=== PATIENT | male | born 1990 | race Caucasian/White ===

== ENCOUNTER 2016-11-14 23:23 | Emergency (ER) | payer OTHER ==
[2016-11-14 23:34] VITALS: RESP 16
--- NOTE | 2016-11-15 00:34 | EDPHY ---
H & P Stated Complaint: c/o peripheral spots/vision changes in R eye starting approx 2300 Time Seen by Provider: 11/15/16 00:09 HPI/ROS: HPI The patient presents with visual changes which occurred tonight at about 8:00 p.m. and lasted for about 30 minutes. Was at the computer watching a movie when he felt the slow onset of visual changes in his right eye temporal visual field. He saw spots and these persisted for about 30 minutes and improved on their own. He had no associated headache, blurring of his vision, double vision. He has no prior history of similar. REVIEW OF SYSTEMS Constitutional: No fever, no chills. Eyes: No discharge. ENT: No sore throat. Cardiovascular: No chest pain, no palpitations. Respiratory: No cough, no shortness of breath. Gastrointestinal: No abdominal pain, no vomiting. Genitourinary: No hematuria. Musculoskeletal: No back pain. Skin: No rashes. Neurological: No headache. 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 PHYSICAL General Appearance: Alert, no distress Eyes: Pupils equal and round no pallor or injection, visual li are full, visual acuity is normal ENT, Mouth: Mucous membranes moist Respiratory: Breathing comfortably Extremities: symmetrical, full range of motion Psychiatric: Patient is oriented X 3, there is no agitation Source: Patient Exam Limitations: No limitations - Medical/Surgical History Hx Asthma: No Hx Chronic Respiratory Disease: No Hx Diabetes: No Hx Cardiac Disease: No Hx Renal Disease: No Hx Cirrhosis: No Hx Alcoholism: No Hx HIV/AIDS: No Hx Splenectomy or Spleen Trauma: No Other PMH: none - Social History Smoking Status: Never smoked Constitutional: Initial Vital Signs Temperature (C) 36.3 C 11/14/16 23:30 Heart Rate 74 11/14/16 23:30 Respiratory Rate 16 11/14/16 23:30 Blood Pressure 152/97 H 11/14/16 23:30 O2 Sat (%) 98 11/14/16 23:30 O2 Delivery Mode Room Air Allergies/Adverse Reactions: No Known Allergies Allergy (Unverified 11/14/16 23:34) Home Medications: Medication Instructions Recorded NK [No Known Home Meds] 11/14/16 Medical Decision Making Procedures: Bedside ocular Ultrasound- performed and interpreted by me. Indication: Visual changes Findings: No retinal detachment, no posterior vitreous detachment, no vitreus hemorrhage Impression: No signs of retinal detachment Differential Diagnosis: This is a 25-year-old male who presents with transient visual field disturbance just prior to arrival lasting for about 30 minutes, now resolved. Has a normal eye exam including his visual li. I ultrasound is unremarkable. Differential diagnosis includes ocular migraine, floaters, posterior vitreous detachment, vitreous hemorrhage, less likely retinal detachment. Given complete resolution of his symptoms, I feel he is suitable for discharge. He should have follow-up with Ophthalmology in the next few days. I have given him return precautions. Departure - Departure Disposition: Home, Routine, Self-Care Clinical Impression: Vision changes Condition: Good Instructions: Ocular Migraine (ED) Additional Instructions: The cause of your symptoms could be related to an ocular migraine or possibly some floaters. Because of this, I have given you the information for Ophthalmology for follow-up. Please call for an appointment. Please return to the emergency room if your worse in any way. Referrals: JOHN GUILLAUME [Primary Care Provider] - As per Instructions Teresa Cardona MD [Non Staff Provider ()] - As per Instructions
[2016-11-15 00:44] VITALS: BP 138/85; PULSE 76; TEMP 98.2; O2SAT 95
== END 2016-11-15 00:44 | disposition home or self-care (01) ==
DX: H53.8 Other visual disturbances (principal)